=== PATIENT | female | born 1990 | race Caucasian/White ===

== ENCOUNTER 2020-12-30 18:25 | Emergency (ER) | payer SELFPAY ==
[~2020-12-30] VITALS: Ht 167.6 cm; Wt 62.8 kg
[2020-12-30 18:25] VITALS: BP 131/78
[2020-12-30] MEDS ORDERED: NAPR220C14 PO (18:31)
[2020-12-30] MEDS ORDERED: FLUORESCEIN OPHTH 1 MG STRIP OD ONE (19:45)
[2020-12-30] MEDS ORDERED: TETRACAINE 0.5% OPHTH SOLN 4ML OD ONE (19:45)
== END 2020-12-30 19:54 | disposition left against medical advice (07) ==
LOC: M ED 18:25
DX: Z53.21 Procedure and treatment not carried out due to patient leaving prior to being seen by health care provider (principal)

== ENCOUNTER 2021-03-09 11:24 | Emergency (ER) | payer SELFPAY ==
[~2021-03-09] VITALS: Ht 167.6 cm; Wt 60.9 kg
[~2021-03-09 11:24] MED LIST: NAPR220C14 PO
[2021-03-09] MEDS ORDERED: KETOROLAC 30 MG/ML 1ML VIAL IV ONE (12:20)
[2021-03-09] MEDS ORDERED: NS 1,000 ML IV ONE (12:20)
[2021-03-09 12:22] LABS: BASO % 0.3 % (0.0-1.0); EOS # 0.1 10^3/uL (0.0-0.5); EOS % 0.8 % (0.0-3.0); HEMATOCRIT 33.3 % (36.0-47.0); HEMOGLOBIN 10.9 g/dl (12.0-15.5); LYMPH # 0.9 10^3/uL (1.5-5.0); MEAN CORPUSCULAR HEMOGLOBIN 29.5 pg (27.0-33.0); MEAN CORPUSCULAR HGB CONC 32.7 g/dl (32.0-36.5); MEAN CORPUSCULAR VOLUME 90.2 fl (80.0-96.0); MONO # 0.9 10^3/uL (0.0-0.8); MONO % 10.4 % (2.0-8.0); NEUTROPHILS # 6.7 10^3/uL (1.5-8.5); NEUTROPHILS % 77.9 % (36.0-66.0); PLATELET COUNT, AUTOMATED 270 10^3/uL (150-450); RED BLOOD COUNT 3.69 10^6/uL (4.00-5.40); WHITE BLOOD COUNT 8.6 10^3/uL (4.0-10.0)
[2021-03-09 12:49] LABS: HCG, SERUM QUALITATIVE NEGATIVE (NEGATIVE)
[2021-03-09 12:54] LABS: ALBUMIN 2.9 GM/DL (3.2-5.2); ALT/SGPT 60 U/L (12-78); BILIRUBIN,DIRECT < 0.1 MG/DL (0.0-0.2); BILIRUBIN,TOTAL 0.3 MG/DL (0.2-1.0); BLOOD UREA NITROGEN 5 MG/DL (7-18); CALCIUM LEVEL 8.5 MG/DL (8.5-10.1); CARBON DIOXIDE LEVEL 32 MEQ/L (21-32); CHLORIDE LEVEL 104 MEQ/L (98-107); CREATININE FOR GFR 0.47 MG/DL (0.55-1.30); GLOMERULAR FILTRATION RATE > 60.0 (>60); GLUCOSE, FASTING 105 MG/DL (70-100); LIPASE 260 U/L (73-393); POTASSIUM SERUM 4.2 MEQ/L (3.5-5.1); SODIUM LEVEL 139 MEQ/L (136-145)
[2021-03-09] MEDS ORDERED: ISOVUE-370 76% 100ML VIAL As Ordered ONE (13:24)
--- NOTE | 2021-03-09 13:39 | REP ---
INDICATION: ruq pain. COMPARISON: None. TECHNIQUE: Multiple ultrasound images of the right upper quadrant of the abdomen were obtained in multiple projections. FINDINGS: There is a 2.4 cm in diameter gallstone. There is no gallbladder wall thickening or pericholecystic fluid. Common bile duct measures 5 mm in diameter. Liver demonstrates normal homogeneous parenchymal echogenicity. The pancreas is unremarkable. The right kidney measures 11.3 x 4.7 x 4.6 cm. There is minimal pelviectasis, likely an extrarenal renal pelvis as a normal variant. IMPRESSION: 1. Cholelithiasis without cholecystitis. 2.. Otherwise unremarkable. <Electronically signed by Ronnell Grace > 03/09/21 0661
--- NOTE | 2021-03-09 14:19 | REP ---
INDICATION: upper abd pain. COMPARISON: None. TECHNIQUE: Imaging protocol: Computed tomography of the abdomen and pelvis with contrast. 2D sagittal and coronal projection reconstructions were performed. Radiation optimization: All CT scans at this facility use at least one of these dose optimization techniques: automated exposure control; mA and/or kV adjustment per patient size (includes targeted exams where dose is matched to clinical indication); or iterative reconstruction. Contrast material: ISOVUE 370; Contrast volume: 100 ml; Contrast route: INTRAVENOUS (IV). FINDINGS: Heart and lung bases: There is an area of atelectasis or scarring in the posterior basal segment of the lower lobe of the left lung (image 4). There are no pleural effusions. The heart size is normal. There is no pericardial effusion. Liver: There is a 6 mm in diameter low-density area in the left hepatic lobe most likely a hemangioma. Gallbladder: There are cholesterol gallstones. There is abnormal thickening of the gallbladder wall, measuring 4 mm in thickness. There is focal fluid in the gallbladder wall abutting the adjacent liver (coronal image 23). Common bile duct measures 7 mm in diameter. Spleen: Normal. Pancreas: Normal. Adrenal glands: Normal. Kidneys/bladder: The kidneys enhance normally. Urinary bladder has a normal unenhanced appearance. Pelvic structures: The uterus and ovaries are normal. There is no free fluid in the pelvis. There are multiple reactive inguinal lymph nodes, bilaterally. There is no pelvic lymphadenopathy. GI tract: There is stool throughout the colon. The appendix is not demonstrated. Abdominal wall and mesentery: There is a 7 mm in diameter umbilical hernia containing normal fat. There is no mesenteric or retroperitoneal lymphadenopathy. Abdominal aorta and vascular structures: The abdominal aorta, inferior vena cava, and portal venous system normal. Osseous structures: There is bilateral spondylolysis with 6 mm of anterolisthesis, L5 on S1. The SI joints and hips are normal. IMPRESSION: 1. Cholelithiasis with possible acute cholecystitis. 2. Moderate constipation. 3. Probable hepatic hemangioma. 4. 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 Pertinent findings: Cholelithiasis with probable acute cholecystitis. The critical information above was relayed directly by me by telephone to ELISA BLAKE on 03/09/2021 at 2:15 pm with readback verification. <Electronically signed by Ronnell Grace > 03/09/21 [id number]
[2021-03-09] MEDS ORDERED: AMPICILLIN SOD/SULBACTAM SOD 3 GM in D5W MINI-BAG PLUS 100 ML IV ONE (14:45)
[2021-03-09] MEDS ORDERED: AUGM875T28 PO (16:19)
[2021-03-09 16:40] VITALS: BP 130/85
== END 2021-03-09 16:43 | disposition home or self-care (01) ==
LOC: M ED 11:24
DX: K80.00 Calculus of gallbladder with acute cholecystitis without obstruction (principal); M54.9 Dorsalgia, unspecified; F17.200 Nicotine dependence, unspecified, uncomplicated; F12.10 Cannabis abuse, uncomplicated; K59.00 Constipation, unspecified; M43.17 Spondylolisthesis, lumbosacral region
CPT/HCPCS: 74177; 76705; 80048; 80076; 81001; 83690; 84703; 85025; 87086; 96361; 96365; 96375; 99284; J1885; Q9967

== ENCOUNTER 2021-04-26 04:42 | Observation (INO) | payer SELFPAY ==
[~2021-04-26] VITALS: Ht 167.6 cm; Wt 56.0 kg
[~2021-04-26 04:42] MED LIST changes: +AUGM875T28 PO
[2021-04-26] MEDS ORDERED: KETOROLAC 30 MG/ML 1ML VIAL IV ONE (07:35)
[2021-04-26] MEDS ORDERED: NS 1,000 ML IV ONE (07:35)
[2021-04-26] MEDS ORDERED: ONDANSETRON 4MG/2ML VIAL IV ONE (07:40)
[2021-04-26 08:36] LABS: BASO % 0.3 % (0.0-1.0); HEMATOCRIT 38.7 % (36.0-47.0); HEMOGLOBIN 12.8 g/dl (12.0-15.5); LYMPH # 0.8 10^3/uL (1.5-5.0); MEAN CORPUSCULAR HGB CONC 33.1 g/dl (32.0-36.5); MEAN CORPUSCULAR VOLUME 87.6 fl (80.0-96.0); MONO # 0.8 10^3/uL (0.0-0.8); MONO % 5.4 % (2.0-8.0); NEUTROPHILS # 13.5 10^3/uL (1.5-8.5); NEUTROPHILS % 88.9 % (36.0-66.0); PLATELET COUNT, AUTOMATED 243 10^3/uL (150-450); RED BLOOD COUNT 4.42 10^6/uL (4.00-5.40); WHITE BLOOD COUNT 15.1 10^3/uL (4.0-10.0)
[2021-04-26 08:49] LABS: AMPHETAMINES LEVEL URINE POSITIVE (NEGATIVE); BARBITURATES URINE NEGATIVE (NEGATIVE); BENZODIAZEPINES URINE NEGATIVE (NEGATIVE); CANNABINOIDS URINE POSITIVE (NEGATIVE); COCAINE METABOLITE URINE NEGATIVE (NEGATIVE); METHADONE URINE NEGATIVE (NEGATIVE); OPIATES URINE POSITIVE (NEGATIVE); PHENCYCLIDINE URINE NEGATIVE (NEGATIVE)
[2021-04-26] MEDS ORDERED: ISOVUE-370 76% 100ML VIAL As Ordered ONE (08:49)
--- NOTE | 2021-04-26 08:52 | REP ---
INDICATION: RUQ pain. COMPARISON: 03/09/2021. TECHNIQUE: Real-time sonographic evaluation of right upper quadrant performed. FINDINGS: Two gallstones are identified in the gallbladder measuring 1.8 cm in diameter. The patient is tender at the site of the gallbladder. There is mild gallbladder wall thickening up to 6 mm.. Common bile duct is slightly dilated at 8 mm. The liver is mildly enlarged with no gross mass. Length of the liver is 19.3 cm. The pancreas demonstrates homogeneous echotexture with no gross mass. The right kidney demonstrates no hydronephrosis, with a normal size of 11.3 cm in length. There is mild free fluid adjacent to the gallbladder. IMPRESSION: Cholelithiasis with mild gallbladder wall thickening and pericholecystic fluid. There is slight dilatation of the common bile duct at 8 mm. Patient is tender at the site of the gallbladder. The findings suggest cholecystitis. <Electronically signed by Terry Meeks > 04/26/21 0849
[2021-04-26 08:58] LABS: ALBUMIN 3.6 GM/DL (3.2-5.2); ALT/SGPT 30 U/L (12-78); BILIRUBIN,DIRECT < 0.1 MG/DL (0.0-0.2); BILIRUBIN,TOTAL 0.4 MG/DL (0.2-1.0); C REACTIVE PROTEIN QUANTITATIV 0.48 MG/DL (0.00-0.30); LIPASE 60 U/L (73-393); TOTAL PROTEIN 7.5 GM/DL (6.4-8.2)
--- NOTE | 2021-04-26 09:27 | REP ---
INDICATION: RUQ/ guarding abd pain COMPARISON: 03/09/2021. TECHNIQUE: CT Scan of the abdomen and pelvis was performed with intravenous administration of 100 cc of Isovue 370, without oral contrast. Sagittal and coronal reconstruction images are performed. FINDINGS: Lung bases: There is mild patchy infiltrate in the left lower lobe. Liver: No liver mass is seen. Gallbladder: The gallbladder is moderately distended. There is gallbladder wall thickening. There is intrahepatic and extrahepatic biliary dilatation of a [id number] degree. The maximum diameter of the common bile duct is 9 mm. The common bile duct tapers to the ampulla of Vater. The findings are compatible with cholecystitis. Spleen: Normal. Adrenals: Normal. Pancreas: Normal. There is no pancreatic duct dilatation. Kidneys: Normal. Small and large bowel: There is no free air or obstruction. No bowel wall thickening is seen.. Free fluid: There is no significant free fluid. Abdominal aorta: No aneurysm or dissection. Adenopathy: None. Appendix: Not inflamed. Osseous structures: There is spondylolysis of L5 with grade 1 spondylolisthesis of L5 on S1. Pelvis: No mass. IMPRESSION: Mild patchy infiltrate left lower lobe. There are findings compatible with cholecystitis. There is intrahepatic and extrahepatic biliary dilatation, maximum diameter of the common bile duct is 9 mm. No free air or significant free fluid. <Electronically signed by Terry Meeks > 04/26/21 0970
[2021-04-26] MEDS ORDERED: cefTRIAXone SOD 1 GM in D5W MINI-BAG PLUS 50 ML IV ONE (10:25)
[2021-04-26] MEDS ORDERED: PERCOCET 5MG/325MG TAB PO PRN (10:40)
[2021-04-26] MEDS ORDERED: ONDANSETRON 4 MG TAB PO PRN (10:40)
[2021-04-26] MEDS ORDERED: HOME MED LIST COMPLETE! XX SCH (11:25)
[2021-04-26] MEDS: LR 1,000 ML IV SCH ×3 (11:36→23:48)
[2021-04-26] MEDS: CIPROFLOXACIN 400 MG in IV 1 EA IV SCH ×2 (12:58→23:44)
[2021-04-26] MEDS: metroNIDAZOLE 500 MG in IV 1 EA IV SCH ×2 (14:16→20:56)
[2021-04-26] MEDS: KETOROLAC 30 MG/ML 1ML VIAL IV SCH ×2 (14:16→20:57)
[2021-04-26 22:00] VITALS: BP 139/86
[2021-04-27] MEDS: KETOROLAC 30 MG/ML 1ML VIAL IV SCH ×4 (02:46→21:35)
[2021-04-27] MEDS: metroNIDAZOLE 500 MG in IV 1 EA IV SCH ×3 (05:17→21:36)
[2021-04-27 06:00] VITALS: BP 109/66
[2021-04-27 09:08] LABS: HEMOGLOBIN 11.2 g/dl (12.0-15.5); MEAN CORPUSCULAR HEMOGLOBIN 28.9 pg (27.0-33.0); MEAN CORPUSCULAR HGB CONC 32.9 g/dl (32.0-36.5); MEAN CORPUSCULAR VOLUME 87.6 fl (80.0-96.0); PLATELET COUNT, AUTOMATED 183 10^3/uL (150-450); RED BLOOD COUNT 3.88 10^6/uL (4.00-5.40); WHITE BLOOD COUNT 15.1 10^3/uL (4.0-10.0)
[2021-04-27 09:33] LABS: ALBUMIN 2.5 GM/DL (3.2-5.2); ALT/SGPT 19 U/L (12-78); BILIRUBIN,TOTAL 0.4 MG/DL (0.2-1.0); BLOOD UREA NITROGEN 6 MG/DL (7-18); CALCIUM LEVEL 8.2 MG/DL (8.5-10.1); CARBON DIOXIDE LEVEL 25 MEQ/L (21-32); CHLORIDE LEVEL 106 MEQ/L (98-107); CREATININE FOR GFR 0.52 MG/DL (0.55-1.30); GLOMERULAR FILTRATION RATE > 60.0 (>60); GLUCOSE, FASTING 165 MG/DL (70-100); POTASSIUM SERUM 3.6 MEQ/L (3.5-5.1); SODIUM LEVEL 137 MEQ/L (136-145)
[2021-04-27] MEDS: PANTOPRAZOLE 40MG VIAL (C9113 PER 1) IV SCH (09:35)
[2021-04-27] MEDS: LR 1,000 ML IV SCH ×2 (09:36→21:36)
--- NOTE | 2021-04-27 09:48 | IPN ---
PROGRESS NOTE DATE: 04/27/2021 SUBJECTIVE: The patient states that her abdominal pain is much better than it was yesterday and she did have a low grade temperature of 99.3 overnight but once again states things are much better this morning. She has had no nausea, no vomiting, no acholic stools, no bilirubinuria and her labs are pending this morning. OBJECTIVE: Her lungs are clear anteriorly. Heart is regular. Abdomen is much less tender throughout the abdomen with decreasing right upper quadrant pain and tenderness appreciated on her exam. Extremities are warm and well perfused. ASSESSMENT AND PLAN: The patient has improving cholecystitis from a clinical standpoint although we will await labs and depending on those, may indicate further evaluation/treatment as necessary but clinically she has some improvement. She looks better. She feels better and is much more conversant and seems to be making some good progress at this time.
[2021-04-27 10:00] VITALS: BP 110/67
--- NOTE | 2021-04-27 10:01 | HPE ---
HISTORY AND PHYSICAL DATE OF ADMISSION: 04/26/2021 HISTORY OF PRESENT ILLNESS: The patient is a 30-year-old female who presented about a month ago with cholecystitis. She did not follow up at that time. Her white count was normal and her alkaline phosphatase was slightly elevated, but otherwise her liver function tests were normal. She presents now after stating that her pain really has never gone away over the last month and it has slowly gotten progressively worse; and over the last 24 hours got much worse prior to coming into the emergency room. She had significant abdominal pain with tenderness, was seen in the emergency room and underwent evaluation, which revealed an elevated white count of 15,000. Chemistries revealed no significant elevated liver function test. Her imaging was repeated from prior visit a month ago and revealed evidence of gallbladder wall thickening and some common bile duct mild dilation. The gallbladder ultrasound was performed at that time and indeed showed a mildly dilated common bile duct with some gallbladder wall thickening and pericholecystic fluid. In general, the patient has not had any acholic stools, no bilirubinuria, although she is an extremely poor historian and is somewhat sedated. When her toxicology labs came back, she was had opiates on board, as well as amphetamines and cannabinoids. PAST MEDICAL HISTORY: History of gallstones, history of back pain. She had some gallstones problems many years ago and was to have her gallbladder out. Because of insurance issues did not have the operation, now presents for further treatment and pain/tenderness significant for further treatment. MEDICATIONS: None. ALLERGIES: None. PHYSICAL EXAMINATION: Reveals a 30-year-old female who is sedated, but arousable. She is does complain of abdominal pains, specifically on the right hand side. HEENT is unremarkable. Neck supple without adenopathy. Lungs are clear anteriorly. Heart: Regular. Abdomen: Mildly tense throughout, sort of relatively difficult to exam because she does guard and is mostly voluntary guarding throughout her abdomen, but it seems as though she does have any significant tenderness on the left side of her abdomen, suprapubic, periumbilical or right lower quadrant. With barely touching the skin on the right upper quadrant, she has more tenderness, but once again at this point it is difficult to exam. IMPRESSION/PLAN: The patient has evidence of cholecystitis. Will give her IV fluids, IV antibiotics and have her on some clear liquids, although the concern at this point is the slightly elevated/dilated ductal systems. Will get some follow up labs in the morning and make sure she does not have a common bile duct stone contributing to this issue and give her some IV fluids, IV antibiotics and will see how she does over the next 24 hours. Will recheck labs in the morning and determine our next course of action depending on that.
[2021-04-27] MEDS: CIPROFLOXACIN 400 MG in IV 1 EA IV SCH (11:46)
[2021-04-27 14:00] VITALS: BP 114/68
[2021-04-27] MEDS: PERCOCET 5MG/325MG TAB PO PRN (16:41)
[2021-04-27 22:00] VITALS: BP 129/63
[2021-04-28] MEDS: PERCOCET 5MG/325MG TAB PO PRN ×3 (00:31→17:54)
[2021-04-28] MEDS: CIPROFLOXACIN 400 MG in IV 1 EA IV SCH (00:32)
[2021-04-28 02:00] VITALS: BP 121/72
[2021-04-28] MEDS: KETOROLAC 30 MG/ML 1ML VIAL IV SCH ×4 (02:00→22:20)
[2021-04-28] MEDS: metroNIDAZOLE 500 MG in IV 1 EA IV SCH (05:08)
[2021-04-28 06:00] VITALS: BP 130/78
[2021-04-28] MEDS: PANTOPRAZOLE 40MG VIAL (C9113 PER 1) IV SCH (08:32)
[2021-04-28 08:48] LABS: HEMATOCRIT 32.8 % (36.0-47.0); HEMOGLOBIN 10.8 g/dl (12.0-15.5); MEAN CORPUSCULAR HGB CONC 32.9 g/dl (32.0-36.5); MEAN CORPUSCULAR VOLUME 88.2 fl (80.0-96.0); PLATELET COUNT, AUTOMATED 161 10^3/uL (150-450); RED BLOOD COUNT 3.72 10^6/uL (4.00-5.40); WHITE BLOOD COUNT 15.6 10^3/uL (4.0-10.0)
[2021-04-28 09:19] LABS: ALBUMIN 2.1 GM/DL (3.2-5.2); ALT/SGPT 18 U/L (12-78); BILIRUBIN,TOTAL 0.3 MG/DL (0.2-1.0); BLOOD UREA NITROGEN 6 MG/DL (7-18); CALCIUM LEVEL 8.1 MG/DL (8.5-10.1); CARBON DIOXIDE LEVEL 24 MEQ/L (21-32); CHLORIDE LEVEL 108 MEQ/L (98-107); CREATININE FOR GFR 0.65 MG/DL (0.55-1.30); GLOMERULAR FILTRATION RATE > 60.0 (>60); GLUCOSE, FASTING 169 MG/DL (70-100); POTASSIUM SERUM 3.3 MEQ/L (3.5-5.1); SODIUM LEVEL 139 MEQ/L (136-145); TOTAL PROTEIN 5.5 GM/DL (6.4-8.2)
[2021-04-28] MEDS: LR 1,000 ML IV SCH ×2 (10:11→22:20)
[2021-04-28] MEDS: PIPERACILLIN/TAZOBACTAM SOD 3.375 GM in D5W MINI-BAG PLUS 50 ML IV SCH ×3 (11:00→22:17)
[2021-04-28 14:37] VITALS: BP 117/70
[2021-04-28 22:00] VITALS: BP 107/61
[2021-04-29] MEDS: PERCOCET 5MG/325MG TAB PO PRN (01:35)
[2021-04-29 02:00] VITALS: BP 93/60
[2021-04-29] MEDS: KETOROLAC 30 MG/ML 1ML VIAL IV SCH ×4 (02:00→21:10)
[2021-04-29] MEDS: LR 1,000 ML IV SCH ×3 (02:40→10:40)
[2021-04-29] MEDS: PIPERACILLIN/TAZOBACTAM SOD 3.375 GM in D5W MINI-BAG PLUS 50 ML IV SCH ×4 (05:22→16:00)
[2021-04-29 06:00] VITALS: BP 115/82
--- NOTE | 2021-04-29 09:02 | IPNPDOC ---
Text Note Date of Service The patient was seen on 04/29/21. NOTE General surgery. Dr Goel The patient is a 30-year-old female admitted with acute cholecystitis. The patient was advanced to low-fat diet yesterday, she states she has tole rated, she has not had breakfast yet today. She denies nausea or vomiting. Still feels soreness in the right upper quadrant. Afebrile VSS MMM Lungs are clear to auscultation S1-S2 regular rate rhythm Abdomen is soft, mildly distended, tenderness with palpation in the right upper quadrant but no guarding or rebound, some grimacing noted. No edema Labs this a.m. pending. Assessment/plan Acute cholecystitis The patient is reviewed as per Dr Goel. States she tolerated low-fat diet last evening, has not yet had breakfast this morning. Labs this morning pending. Continue IV Zosyn IVF 125cc/hr Continue to monitor. VS,Fishbone, I+O VS, Fishbone, I+O Laboratory Tests 04/28/21 08:32 Vital Signs Date Time Temp Pulse Resp B/P (MAP) Pulse Ox O2 Delivery O2 Flow Rate FiO2 04/29/21 06:00 97.3 79 17 115/82 (93) 100 Room Air I&O- Last 24 Hours up to 6 AM 04/29/21 06:00 Intake Total 3045 ml Output Total 475 ml Balance 2570 ml Dina Corbett Apr 29, 2021 08:13
[2021-04-29 10:00] VITALS: BP 113/77
[2021-04-29 10:00] LABS: HEMATOCRIT 31.2 % (36.0-47.0); HEMOGLOBIN 10.2 g/dl (12.0-15.5); MEAN CORPUSCULAR HEMOGLOBIN 28.9 pg (27.0-33.0); MEAN CORPUSCULAR HGB CONC 32.7 g/dl (32.0-36.5); MEAN CORPUSCULAR VOLUME 88.4 fl (80.0-96.0); PLATELET COUNT, AUTOMATED 158 10^3/uL (150-450); RED BLOOD COUNT 3.53 10^6/uL (4.00-5.40); WHITE BLOOD COUNT 9.2 10^3/uL (4.0-10.0)
[2021-04-29 10:22] LABS: ALT/SGPT 24 U/L (12-78); BILIRUBIN,TOTAL 0.3 MG/DL (0.2-1.0); BLOOD UREA NITROGEN 8 MG/DL (7-18); CALCIUM LEVEL 7.5 MG/DL (8.5-10.1); CARBON DIOXIDE LEVEL 26 MEQ/L (21-32); CHLORIDE LEVEL 109 MEQ/L (98-107); CREATININE FOR GFR 0.58 MG/DL (0.55-1.30); GLOMERULAR FILTRATION RATE > 60.0 (>60); GLUCOSE, FASTING 175 MG/DL (70-100); POTASSIUM SERUM 3.7 MEQ/L (3.5-5.1); SODIUM LEVEL 141 MEQ/L (136-145); TOTAL PROTEIN 5.1 GM/DL (6.4-8.2)
[2021-04-29] MEDS: PANTOPRAZOLE 40MG VIAL (C9113 PER 1) IV SCH (10:31)
[2021-04-29 14:00] VITALS: BP 121/79
[2021-04-29 18:00] VITALS: BP 135/87
[2021-04-29] MEDS ORDERED: AUGMENTIN 875 MG TAB PO SCH (21:00)
== END 2021-04-29 21:11 | disposition left against medical advice (07) ==
LOC: M ED 04:42 → M ED INP 04:43 → ENRESERV 14:55 → M MSPAV 17:04
PROVIDERS: ADMIT Surgery; ATTEND Surgery
DX: K81.0 Acute cholecystitis (principal)
CPT/HCPCS: 36415; 74177; 76705; 80047; 80053; 80076; 80307; 81001; 83605; 83690; 84702; 85025; 85027; 86140; 87040; 96361; 96365; 96366; 96367; 96375; 96376; 99285; C9113; J0696; J0744; J1885; J2405; J2543; Q9967; U0002